=== PATIENT | male | born 1955 | race Caucasian/White ===

== ENCOUNTER 2016-09-22 10:29 | Emergency (ER) | payer MEDICARE, OTHER ==
[~2016-09-22] VITALS: Ht 195.6 cm; Wt 158.8 kg
[~2016-09-22 10:29] MED LIST: ADVIL200 MG PO; AMLODIPINE BESY10 MG PO; CELEBREX100 MG PO; HYDROCODON-ACE1 EA10 PO; LISINOPRIL-HCT1 EAC1 PO; LYRICA150 MG PO; MOMETASONE FURO30 ML TOP; POTASSIUM CHLO10 MEQ PO; PROPRANOLOL HCL20 MG PO; PROZAC20 MG PO
--- NOTE | 2016-09-23 07:16 | EKG ---
[facility] [address] [facility] [place], [place] [address] Signed Sinus bradycardia with sinus arrhythmia with 1st degree AV block Otherwise normal ECG No previous ECGs available Confirmed by FIONA IRELAND MD ([id number] on 09/23/2016 7:16:14 AM Electronically Signed By: FIONA IRELAND MD 09/23/16 0716 PATIENT NAME: KRYSTAL BARLOW Electrocardiogram DATE OF : 53 PHYSICIAN: FIONA IRELAND MD REPORT #: [id number] REPORT IS CONFIDENTIAL AND NOT TO BE RELEASED WITHOUT AUTHORIZATION
== END 2016-09-22 11:44 | disposition home or self-care (01) ==
LOC: ED 10:29
DX: R07.9 Chest pain, unspecified (principal); I10 Essential (primary) hypertension; Z85.46 Personal history of malignant neoplasm of prostate; Z90.79 Acquired absence of other genital organ(s); Z90.89 Acquired absence of other organs; Z88.2 Allergy status to sulfonamides; Z88.8 Allergy status to other drugs, medicaments and biological substances; Z79.899 Other long term (current) drug therapy
CPT/HCPCS: 71010; 80053; 84484; 85025; 93005; 93010; 99284

== ENCOUNTER 2018-10-29 08:00 | Emergency (ER) | payer MEDICARE, OTHER ==
[~2018-10-29] VITALS: Ht 195.6 cm; Wt 158.8 kg
--- OUTSIDE RECORDS SUMMARY | 2018-10-29 08:04 | XMS ---
PreManage Notification: KRYSTAL BARLOW Security Landscape Contractor Events No recent Security Events currently on file CRITERIA MET - [facility] - 2 Visits in 30 Days CARE PROVIDERS Name Unknown [facility] Current PHONE: [phone] MICHELLE CHIRINOS [facility] Current PHONE: [phone] MICHELLE CHIRINOS Primary Care Current PHONE: Unknown Sonu Duran MD PHONE: Unknown [facility] Other Current Orthopedic Surgery \T\ Fracture [facility] PHONE: Unknown Yina has no Care Guidelines for this patient. Kit VISIT COUNT (12 MO.) [address] [facility] TOTAL 2 NOTE: Visits indicate total known visits. ED/UCC VISIT TRACKING (12 MO.) 10/29/2018 08:01 [facility] [place] TYPE: Emergency COMPLAINT: - NASAL DRAINAGE 09/29/2018 10:37 [facility] [place] TYPE: Emergency DIAGNOSES: - seizures - Other specified postprocedural states - Unspecified convulsions INPATIENT VISIT TRACKING (12 MO.) 09/29/2018 21:13 [facility] TYPE: Neuro Surgery DIAGNOSES: [address]89[address]. [place] [address]. Unspecified convulsions 09/19/2018 05:06 [facility] TYPE: Neuro Surgery DIAGNOSES: 11282. Hypokalemia 26566. Unspecified convulsions . Benign neoplasm of meninges, unspecified [email or web address]
[2018-10-29] MEDS ORDERED: GABAPENTIN800 MG PO (08:15)
[2018-10-29] MEDS ORDERED: HYDROXYCHLOROQ200 MG PO (08:17)
[2018-10-29] MEDS ORDERED: SIMVASTATIN20 MG PO (08:36)
[2018-10-29] MEDS ORDERED: VIMPAT100 MG PO (08:37)
[2018-10-29] MEDS ORDERED: MAPAP500 M1 PO (08:39)
[2018-10-29] MEDS ORDERED: LASIX20 MG PO (08:40)
[2018-10-29] MEDS ORDERED: KETOCONAZOLE15 GM TOP (08:41)
[2018-10-29] MEDS ORDERED: ZOFRAN4 MG PO (08:42)
== END 2018-10-29 09:10 | disposition home or self-care (01) ==
LOC: ED 08:00
DX: J95.89 Other postprocedural complications and disorders of respiratory system, not elsewhere classified (principal); J34.89 Other specified disorders of nose and nasal sinuses; I10 Essential (primary) hypertension; Z85.46 Personal history of malignant neoplasm of prostate; Z88.2 Allergy status to sulfonamides; Z79.899 Other long term (current) drug therapy
CPT/HCPCS: 99283

== ENCOUNTER 2024-10-09 08:46 | Emergency (ER) | payer MEDICARE, OTHER ==
[~2024-10-09] VITALS: Ht 195.6 cm; Wt 165.0 kg
[~2024-10-09 08:46] MED LIST changes: +GABAPENTIN800 MG PO; +HYDROXYCHLOROQ200 MG PO; +KETOCONAZOLE15 GM TOP; +LASIX20 MG PO; +MAPAP500 M1 PO; +SIMVASTATIN20 MG PO; +VIMPAT100 MG PO; +ZOFRAN4 MG PO
[2024-10-09] MEDS ORDERED: DONEPEZIL HCL10 M1 PO (09:15)
[2024-10-09] MEDS ORDERED: GABAPENTIN300 MG PO (09:15)
[2024-10-09] MEDS ORDERED: AMILORIDE HCL5 MG PO (09:16)
[2024-10-09] MEDS ORDERED: TAMSULOSIN HCL0.4 MG PO (09:16)
[2024-10-09] MEDS ORDERED: METHOTREXATE2.5 MG PO (09:16)
[2024-10-09] MEDS ORDERED: LEFLUNOMIDE10 MG PO (09:18)
[2024-10-09 09:19] LABS: BASOPHILS 0.7 % (0.2-1.2); EOSINOPHILS 2.8 % (0.8-7.0); LYMPHOCYTES 21.8 % (21.8-53.1); MCH 30.9 PG (25.7-32.2); MCHC 34.1 g/dL (32.3-36.5); MCV 90.7 fL (79.0-92.2); MONOCYTES 12.2 % (5.3-12.2); NEUTROPHILS 62.3 % (34.0-67.9); RBC 4.95 M/uL (4.63-6.08)
[2024-10-09 09:23] LABS: INR 1.01 (0.80-1.30); PROTIME 12.6 Sec (11.2-14.2)
[2024-10-09 09:29] LABS: ALT (SGPT) 29.0 U/L (14-59); AST (SGOT) 28.0 U/L (15-37); GLOMERULAR FILTRATION RATE,EST 76.0 mL/min (>60); PROTEIN, TOTAL 7.0 g/dL (6.4-8.2); UREA NITROGEN 23.0 mg/dL (7-18)
[2024-10-09] MEDS ORDERED: PEPCID20 MG PO (11:56)
[2024-10-09] MEDS ORDERED: CARAFATE1 GM PO (11:56)
[2024-10-09 12:11] VITALS: BP 127/87
== END 2024-10-09 12:12 | disposition home or self-care (01) ==
LOC: ED 08:46
PROVIDERS: Emergency Medicine
DX: K62.5 Hemorrhage of anus and rectum (principal); R10.13 Epigastric pain; I10 Essential (primary) hypertension; Z87.11 Personal history of peptic ulcer disease; Z88.2 Allergy status to sulfonamides; Z88.8 Allergy status to other drugs, medicaments and biological substances; Z88.4 Allergy status to anesthetic agent; Z79.1 Long term (current) use of non-steroidal anti-inflammatories (NSAID); Z79.631 Long term (current) use of antimetabolite agent; Z79.899 Other long term (current) drug therapy
CPT/HCPCS: 36415; 74177; 80053; 83690; 85025; 85610; 99284-25; Q9967